=== PATIENT | female | born 1975 | race Two or more races ===

== ENCOUNTER 2018-10-01 20:13 | Emergency (ER) | payer MEDICAID, OTHER ==
[~2018-10-01] VITALS: Ht 170.2 cm; Wt 81.0 kg
[2018-10-01] MEDS ORDERED: SODIUM CHLORIDE 0.9% 1,000 ML IV ONE (21:10)
[2018-10-01] MEDS ORDERED: ONDANSETRON HCL 4MG/2ML INJ IV STA (21:10)
[2018-10-01 21:42] LABS: HEMATOCRIT. 42.3 % (36.0-48.0); MEAN CORPUSCULAR HEMOGLOBIN 31.8 pg (28.0-32.0); MEAN CORPUSCULAR VOLUME 96.2 fL (81.0-99.0); MEAN PLATELET VOLUME 8.1 fl (7.4-10.4); PLATELET 201 x1000/uL (130-400); RED BLOOD CELL COUNT 4.39 mill/uL (4.2-5.4); RED CELL DISTRIBUTION WIDTH 16.1 % (11.6-14.6)
[2018-10-01 21:48] LABS: CHLORIDE 108 mEq/L (98-107)
[2018-10-01 21:49] LABS: HCG SCREEN NEGATIVE
[2018-10-01 21:50] LABS: INR 1.1; PROTHROMBIN TIME 10.9 sec (9.6-11.0)
[2018-10-01 22:22] LABS: PLATELET ESTIMATE NORMAL
[2018-10-01 22:27] LABS: *AMPHETAMINES SCREEN URINE NEGATIVE (NEGATIVE)
[2018-10-01 22:28] LABS: *BARBITURATES SCREEN URINE NEGATIVE (NEGATIVE); *BENZODIAZEPINES SCREEN URINE NEGATIVE (NEGATIVE); *COCAINE SCREEN URINE NEGATIVE (NEGATIVE); METHADONE URINE SCREEN NEGATIVE (NEGATIVE); OPIATES URINE SCREEN NEGATIVE (NEGATIVE); PHENCYCLIDINE URINE SCREEN NEGATIVE (NEGATIVE)
[2018-10-01 22:29] LABS: CANNABINOID URINE SCREEN NEGATIVE (NEGATIVE)
[2018-10-01 22:40] LABS: ETHANOL BLOOD 547 mg/dL
[2018-10-02 00:55] VITALS: BP 132/95
== END 2018-10-02 01:42 | disposition home or self-care (01) ==
LOC: ER 20:13
DX: T51.0X1A Toxic effect of ethanol, accidental (unintentional), initial encounter (principal); G93.40 Encephalopathy, unspecified; R32 Unspecified urinary incontinence; F32.9 Major depressive disorder, single episode, unspecified; Y92.89 Other specified places as the place of occurrence of the external cause
CPT/HCPCS: 36415; 80053; 80305; 80320; 81025; 83690; 84484; 84703; 85025; 85610; 93005; 96361; 96374; 99284; J2405; J7030; G0480

== ENCOUNTER 2019-05-30 21:36 | Emergency (ER) | payer MEDICAID ==
[~2019-05-30] VITALS: Ht 162.6 cm; Wt 68.0 kg
[2019-05-30] MEDS ORDERED: SODIUM CHLORIDE 0.9% 1,000 ML IV ONE (23:23)
[2019-05-30] MEDS ORDERED: ONDANSETRON HCL 4MG/2ML INJ IV ONE (23:30)
[2019-05-30 23:59] LABS: CHLORIDE 105 mEq/L (98-107)
[2019-05-31 00:03] LABS: BASOPHILS % 1.1 % (0.0-2.0); EOSINOPHILS % 0.4 % (0.0-5.0); HEMATOCRIT. 42.2 % (36.0-48.0); LYMPHOCYTES % 50.5 % (20.0-50.0); MEAN CORPUSCULAR HEMOGLOBIN 32.5 pg (28.0-32.0); MEAN PLATELET VOLUME 8.9 fl (7.4-10.4); MONOCYTES % 14.6 % (2.0-8.0); NEUTROPHILS % 33.4 % (40.0-76.0); PLATELET 229 x1000/uL (130-400); RED BLOOD CELL COUNT 4.31 mill/uL (4.2-5.4); RED CELL DISTRIBUTION WIDTH 15.8 % (11.6-14.6)
[2019-05-31 00:04] LABS: HCG SCREEN NEGATIVE
[2019-05-31 00:13] LABS: ETHANOL BLOOD 482 mg/dL
[2019-05-31 00:25] VITALS: BP 135/70
== END 2019-05-31 02:41 | disposition left against medical advice (07) ==
LOC: ER 21:36
DX: S00.83XA Contusion of other part of head, initial encounter (principal); T51.0X1A Toxic effect of ethanol, accidental (unintentional), initial encounter; F10.129 Alcohol abuse with intoxication, unspecified; G92 Toxic encephalopathy; Y90.8 Blood alcohol level of 240 mg/100 ml or more; Z86.59 Personal history of other mental and behavioral disorders; W01.198A Fall on same level from slipping, tripping and stumbling with subsequent striking against other object, initial encounter; Y93.89 Activity, other specified; Y92.512 Supermarket, store or market as the place of occurrence of the external cause
CPT/HCPCS: 36415; 70450; 70486; 80048; 80320; 84703; 85025; 96361; 96374; 99284; J2405; J7030; G0480

== ENCOUNTER 2019-08-02 15:26 | Emergency (ER) | payer MEDICAID ==
[~2019-08-02] VITALS: Ht 160 cm; Wt 71.0 kg
[2019-08-02] MEDS ORDERED: ACETAMINOPHEN 325MG TABLET PO PRN (16:45)
[2019-08-02 17:03] LABS: CLARITY URINE CLEAR (CLEAR); COLOR URINE YELLOW (YELLOW); KETONES URINE NEGATIVE (NEGATIVE); LEUKOCYTE ESTERASE URINE 1+ (NEGATIVE); NITRITE URINE NEGATIVE (NEGATIVE); OCCULT BLOOD URINE 3+ (NEGATIVE); PROTEIN URINE NEGATIVE (NEGATIVE); SPECIFIC GRAVITY URINE 1.016 (1.005-1.030); UROBILINOGEN URINE 0.2 E.U./dL (0.2-1.0)
[2019-08-02 17:44] VITALS: BP 107/63
[2019-08-02 17:59] LABS: BASOPHILS % 1.4 % (0.0-2.0); EOSINOPHILS % 0.6 % (0.0-5.0); HEMATOCRIT. 35.5 % (36.0-48.0); HEMOGLOBIN. 12.2 g/dL (12.0-16.0); LYMPHOCYTES % 35.7 % (20.0-50.0); MEAN CORPUSCULAR HEMOGLOBIN 33.2 pg (28.0-32.0); MEAN CORPUSCULAR VOLUME 96.9 fL (81.0-99.0); MEAN PLATELET VOLUME 8.2 fl (7.4-10.4); MONOCYTES % 14.3 % (2.0-8.0); PLATELET 224 x1000/uL (130-400); RED BLOOD CELL COUNT 3.66 mill/uL (4.2-5.4); RED CELL DISTRIBUTION WIDTH 14.2 % (11.6-14.6)
[2019-08-02 18:07] LABS: CHLORIDE 106 mEq/L (98-107)
[2019-08-02 18:19] LABS: B-HCG QUANTITATIVE < 1 mIU/mL (<3)
== END 2019-08-02 19:30 | disposition home or self-care (01) ==
LOC: ER 15:26
DX: N93.8 Other specified abnormal uterine and vaginal bleeding (principal); R79.89 Other specified abnormal findings of blood chemistry; Z71.41 Alcohol abuse counseling and surveillance of alcoholic; R03.0 Elevated blood-pressure reading, without diagnosis of hypertension; N39.0 Urinary tract infection, site not specified; Z98.890 Other specified postprocedural states
CPT/HCPCS: 36415; 76856; 80053; 81003; 81025; 84702; 85025; 86850; 86900; 99284

== ENCOUNTER 2024-10-25 20:08 | Emergency (ER) | payer MEDICAID ==
[~2024-10-25] VITALS: Ht 167.6 cm; Wt 69.0 kg
[2024-10-25 20:36] VITALS: TEMP 37.1; O2SAT 99
[2024-10-25 22:00] VITALS: BP 117/69; PULSE 89; RESP 20
[2024-10-25] MEDS: KETOROLAC 15MG/ML VIAL IM ONE (22:00)
[2024-10-25] MEDS ORDERED: IBUP-2029 MT (22:12)
== END 2024-10-25 23:30 | disposition home or self-care (01) ==
LOC: ER 20:08
DX: M17.12 Unilateral primary osteoarthritis, left knee (principal); Z79.899 Other long term (current) drug therapy; Z88.0 Allergy status to penicillin
CPT/HCPCS: 73562; 99283; A4606